=== PATIENT | female | born 1980 | race Hispanic/Latino ===

== ENCOUNTER 2018-01-19 12:36 | Emergency (ER) | payer MEDICAID ==
[2018-01-19 12:55] VITALS: BP 152/96; PULSE 77; RESP 18; TEMP 98.3; O2SAT 98
--- NOTE | 2018-01-19 13:39 | C.PDOC ---
History Of Present Illness 37-year-old female presents to the emergency department with complaints of feeling anxious and overwhelmed. Patient states her father passed in August 2017 , and since then she has been taking care of his 94 year old aunt and as well as her autistic son. Patient has already scheduled an outpatient psychiatry appointment, but was urged to come to ER by her family. She denies suicidal or homicidal ideations, hallucinations, substance abuse. Time Seen by Provider: 01/19/18 13:08 Chief Complaint (Nursing): Anxiety History Per: Patient History/Exam Limitations: no limitations Onset/Duration Of Symptoms: Persistent Current Symptoms Are (Timing): Still Present Severity: Moderate Involuntary Hold By: None Past Medical History Reviewed: Historical Data, Nursing Documentation, Vital Signs Vital Signs: Last Vital Signs Temp 98.3 F 01/19/18 12:51 Pulse 77 01/19/18 12:51 Resp 18 01/19/18 12:51 BP 152/96 H 01/19/18 12:51 Pulse Ox 98 01/19/18 15:38 - Medical History PMH: Gastritis Surgical History: Tonsillectomy Family History: States: No Known Family Hx - Social History Hx Alcohol Use: Yes Hx Substance Use: No - Immunization History Hx Tetanus Toxoid Vaccination: Yes Hx Influenza Vaccination: Yes Hx Pneumococcal Vaccination: No Review Of Systems Constitutional: Negative for: Fever, Chills Cardiovascular: Negative for: Chest Pain, Palpitations Respiratory: Negative for: Shortness of Breath Gastrointestinal: Negative for: Nausea, Vomiting, Abdominal Pain Neurological: Negative for: Headache, Dizziness Psych: Positive for: Anxiety. Negative for: Psychosis, Suicidal ideation Physical Exam - Physical Exam Appears: Well, Non-toxic, No Acute Distress Skin: Normal Color, Warm, Dry Head: Normacephalic Eye(s): bilateral: Normal Inspection Oral Mucosa: Moist Cardiovascular: Rhythm Regular Respiratory: Normal Breath Sounds, No Rales, No Rhonchi, No Wheezing Neurological/Psych: Oriented x3, Normal Speech, Normal Cognition Gait: Steady ED Course And Treatment O2 Sat by Pulse Oximetry: 98 (RA) Pulse Ox Interpretation: Normal Progress Note: Patient seen by crisis counselor Yoanna, and given infomation on grief support group at [facility], plus Dr. Hoffman's card in order to make earlier outpatient appointment. Rx given for low dose Xanax to be used as needed. Patient is comfortable being dicharged home, and understands she should return to ED if she has worsening or concerning symptoms. Disposition Counseled Patient/Family Regarding: Diagnosis, Need For Followup, Rx Given - Disposition Referrals: Stewart Hoffman MD [Staff Provider] - King Bonilla MD [Staff Provider] - Disposition: HOME/ ROUTINE Disposition Time: 13:40 Condition: STABLE Additional Instructions: CALL DR HOFFMAN'S OFFICE FOR APPOINTMENT USE MEDICATION NEEDED RETURN TO ER IF YOU HAVE ANY CONCERNING SYMPTOMS Prescriptions: ALPRAZolam [Xanax] 0.25 mg PO Q6 PRN #12 tab PRN Reason: Anxiety Instructions: Anxiety, Adult (DC) Forms: [employer] (Liberian) Print Language: IRAQI - Clinical Impression Clinical Impression: Anxiety, Grief reaction - Scribe Statement The provider has reviewed the documentation as recorded by the Scribe (Francesca Sierra) All medical record entries made by the Scribe were at my direction and personally dictated by me. I have reviewed the chart and agree that the record accurately reflects my personal performance of the history, physical exam, medical decision making, and the department course for this patient. I have also personally directed, reviewed, and agree with the discharge instructions and disposition.
== END 2018-01-19 13:40 | disposition home or self-care (01) ==
LOC: C.ER 12:36
DX: F43.22 Adjustment disorder with anxiety (principal)